=== PATIENT | male | born 1955 | race Caucasian/White ===

== ENCOUNTER → 2018-06-16 11:12 | Outpatient (CLI) | payer MEDICARE, SELFPAY ==
[2018-06-16 14:31] LABS: International Normalized Ratio 0.9; Prothrombin Time (Protime)PT. 12.5 SECONDS (11.7-14.9)
[2018-06-16 14:32] LABS: Partial Thromboplast Time 28.7 Seconds (24.1-36.2)
[2018-06-16 14:42] LABS: AST(SGOT) 20 U/L (15-37); Alanine Aminotransfer ALT/SGPT 26 U/L (16-61); Albumin, Serum 3.7 g/dL (3.2-5.0); Alkaline Phosphatase 95 U/L (45-117); Bilirubin, Direct 0.09 mg/dL (0.00-0.30); Globulin 3.7 g/dL (2.2-4.2); Protein, Total 7.4 g/dL (6.4-8.2)
[2018-06-17 09:39] LABS: AFP, Tumor Marker 1.5 ng/mL (0.0-8.3)
== END ==
PROVIDERS: Family Provider Family Medicine; PCP Family Medicine; Visit Provider Internal Medicine Gastroenterology
DX: K74.60 Unspecified cirrhosis of liver (principal)
CPT/HCPCS: 36415; 80076; 82105; 85610; 85730

== ENCOUNTER → 2018-08-26 12:37 | Outpatient (CLI) | payer MEDICARE, SELFPAY ==
[2018-08-26 14:28] LABS: Absolute Lymphocyte Count 3.05 X10^3/ul (0.83-4.51); Absolute Neutrophil Count 5.6 X10^3/uL (2.0-7.7); Basophil# 0.01 X10^3/uL; Basophil% 0.1 % (0-1); Eosinophils% 3.1 % (0-5); Hematocrit 48.9 % (40-54); Hemoglobin 16.6 g/dl (13.0-16.5); International Normalized Ratio 0.9; Lymphocyte # 3.05 X10^3/ul (4.0); Lymphocyte % 31.3 % (19-41); Mean Corp Hgb Conc 33.9 g/gl (32-36); Mean Corpuscular Volume 94.2 fL (80-94); Mean Platelet Vol. 10.6 fl (6.2-12.0); Monocyte# 0.71 X10^3/uL; Monocyte% 7.3 % (0-10); Neutrophil # 5.64 X10^3/uL (2.7-7.7); Neutrophil % 57.9 % (47-70); Platelet Count 234 K/mm3 (150-450); Prothrombin Time (Protime)PT. 12.4 SECONDS (11.7-14.9); RBC Distribution Width CV 13.7 % (11.6-14.6); RBC Distribution Width SD 46.5 fl (35.1-43.9); Red Blood Count 5.19 M/mm3 (4.6-6.2); White Blood Count 9.7 K/mm3 (4.4-11.0)
[2018-08-26 14:29] LABS: POSITIVE COUNT NO; POSITIVE DIFFERENTIAL NO; POSITIVE MORPHOLOGY NO; Partial Thromboplast Time 29.7 Seconds (24.1-36.2)
[2018-08-26 14:45] LABS: AST(SGOT) 17 U/L (15-37); Alanine Aminotransfer ALT/SGPT 22 U/L (16-61); Albumin, Serum 3.9 g/dL (3.2-5.0); Alkaline Phosphatase 99 U/L (45-117); Bilirubin, Direct 0.12 mg/dL (0.00-0.30); Globulin 4.1 g/dL (2.2-4.2)
== END ==
PROVIDERS: Family Provider Family Medicine; PCP Family Medicine; Referring Provider Internal Medicine Gastroenterology; Visit Provider Internal Medicine Gastroenterology
DX: B19.20 Unspecified viral hepatitis C without hepatic coma (principal); K74.60 Unspecified cirrhosis of liver; R19.7 Diarrhea, unspecified
CPT/HCPCS: 36415; 80076; 85025; 85610; 85730

== ENCOUNTER 2018-09-06 12:34 | Emergency (ER) | payer MEDICARE, SELFPAY ==
[2018-09-06 12:35] VITALS: BP 125/66; PULSE 92; RESP 18; TEMP 36.1; O2SAT 99; BMI 32.5
--- NOTE | 2018-09-06 13:33 | ED.VISSUMM ---
- ER Visit Summary Date of Service: 09/06/18 Chief Complaint: Jaw pain History of Present Illness: The patient is a 63 M reports a history of popping his jaw. He states yesterday he developed left jaw pain and states that his cheek will swell up whenever he tries to eat. He has no difficulty opening or closing his mouth. He is edentulous. Physical Examination: Vital signs unremarkable. Patient sitting upright in bed no acute distress. Head neck examination reveals mild tenderness of the left parotid gland. There is no intraoral tenderness or edema. Patient is edentulous. There is no gum edema or tenderness. Neck is supple with no significant lymphadenopathy. Heart is regular rate and rhythm. Lung sounds clear. Test Results: [] Emergency Department Course and Treatment: I believe the patient has parotiditis. He will be started on Pen-Vee K and instructed to eat lemon candies. He is given referral to ENT if not improving. Treatment Plan: [] Disposition: Discharge Impression: Left parotiditis This note was generated with [employer] dictation software. It may contain incorrect words, spelling, and punctuation that were not noted in review of the chart prior to signing ED Disposition - Plan for ED Patient: Disposition: Home or Assisted Living Chief Complaint: Dental Instructions: ED Sublingual Gland Obstruction Prescriptions: Penicillin V Potassium 500 mg PO 4X/DAY #40 tablet Referrals: Don Aly MD [STAFF PHYSICIAN] - 1 Week if not improving
[2018-09-06] MEDS: Penicillin Vk 250 MG Tablet 500 MG PO (13:56)
== END 2018-09-06 13:58 | disposition home or self-care (01) ==
LOC: ED 13:46
PROVIDERS: Emergency Provider Emergency Medicine; Family Provider Family Medicine; PCP Family Medicine
DX: K11.20 Sialoadenitis, unspecified (principal); Z72.0 Tobacco use; Z79.899 Other long term (current) drug therapy; Z86.19 Personal history of other infectious and parasitic diseases
CPT/HCPCS: 99283

== ENCOUNTER → 2019-01-07 10:39 | Outpatient (CLI) | payer MEDICARE, SELFPAY ==
[2019-01-09 03:07] LABS: HCV Quant. RNA PCR HCV Not Detected IU/mL (.)
[2019-01-10 11:13] LABS: AFP, Tumor Marker 1.5 ng/mL (0.0-8.3)
== END ==
PROVIDERS: Family Provider Family Medicine; PCP Family Medicine; Referring Provider Internal Medicine Gastroenterology; Visit Provider Internal Medicine Gastroenterology
DX: B19.20 Unspecified viral hepatitis C without hepatic coma (principal); K74.60 Unspecified cirrhosis of liver
CPT/HCPCS: 36415; 82105; 87522

== ENCOUNTER → 2020-06-07 10:42 | Outpatient (CLI) | payer MEDICARE, SELFPAY ==
--- NOTE | 2020-06-07 10:50 | ART_ITS ---
Reason For Study: PVD, claudication Procedure A bilateral lower extremity continuous wave Doppler with analog waveform analysis,segmental pressures,and ankle brachial indexes without exercise. Left Segmental Pressures Left brachial= 130mmHg. Left posterior tibial artery = 185mmHg. Left dorsalis pedis artery = 173mmHg. Left digit = 100 mmHg. The left dorsalis pedis waveforms are triphasic. The left posterior tibial artery waveforms are triphasic. Right Segmental Pressures Right brachial= 126mmHg. Right posterior tibial artery = 174mmHg. Right dorsalis pedis artery = 153mmHg. Right digit = 72 mmHg. The right dorsalis pedis waveforms are triphasic. The right posterior tibial artery waveforms are triphasic. Indices The right ankle brachial index by the dorsalis pedis is 1.18. The right ankle brachial index by the posterior tibial artery is 1.34. The right digital-brachial index is .55. The left ankle brachial index by the dorsalis pedis is 1.33. The left ankle brachial index by the posterior tibial artery is 1.42. The left digital-brachial index is .77. Interpretation Summary Triphasic Doppler waveforms are noted at ankle level bilaterally. Pulse-volume recordings appear satisfactory at all levels bilaterally, including low-thigh, calf, ankle, and digital levels. The resting right ankle-brachial index is normal. The resting left ankle-brachial index is supra-normal. The right digital-brachial index is mildly diminished. The left digital-brachial index is normal. There is evidence of arterial calcification at ankle level on the left. Arterial flow appears normal at ankle level bilaterally. There is evidence of mild, distal, small-vessel arterial occlusive disease at digital level on the right. Arterial flow appears normal at digital level on the left. Ordering Physician: Samara Cerda Performed By: FEDERICA ANDERSON T
== END ==
PROVIDERS: PCP Family Medicine; Referring Provider Podiatrist; Visit Provider Podiatrist
DX: I73.9 Peripheral vascular disease, unspecified (principal)
CPT/HCPCS: 93923

== ENCOUNTER 2021-03-12 09:37 | Emergency (ER) | payer MEDICARE, SELFPAY ==
[2021-03-12 09:38] VITALS: BP 130/74; PULSE 77; RESP 16; TEMP 35.8; O2SAT 98; BMI 32.3
--- NOTE | 2021-03-12 09:57 | CT_ITS ---
STUDY: CT ABDOMEN AND PELVIS WITH CONTRAST REASON FOR EXAM: Male, 65 years old. abdominal pain RADIATION DOSAGE (If Supplied By Facility): CTDIvol = ( 15.20 ) mGy, DLP = ( 1082.63 ) mGycm TECHNIQUE: Transaxial images were obtained from the dome of the diaphragm to the symphysis pubis without oral contrast. IV 100mL Isovue-370 was administered. Sagittal and coronal images were reconstructed. Individualized dose optimization techniques were used for this CT. COMPARISON: None. FINDINGS: The visualized lung bases are unremarkable. The visualized portions of the heart are within normal limits. Normal liver. Normal gallbladder and extrahepatic biliary system. Normal spleen. Normal pancreas. Normal bilateral adrenal glands. 6 mm nonobstructing stone in the upper pole the right kidney. Normal left kidney. Normal visualized stomach. Wall thickening and stranding of surrounding fat of the second portion the duodenum worrisome for duodenitis. Within this area there is a 1 cm pocket with an air-fluid level which may represent a penetrating ulcer or evidence of microperforation. Diverticulum of the superior margin the third portion duodenum. There are multiple colonic diverticula consistent with diverticulosis. The appendix is visualized and appears normal. Normal abdominal aorta. Normal inferior vena cava. Normal retroperitoneum. Normal urinary bladder. Normal abdominal wall. Status post discectomy and interbody and anterior fusion at L5/S1. CT/Abdomen/Pelvis W IV Cont ONLY IMPRESSION: Duodenitis with visualization of the ulcer or microperforation. Endoscopy may be useful. N.B. : The above information has been verbally conveyed by Harjeet Dawn MD to Sadiq Licona MD, on 03/12/2021 11:38:22 (ET). Electronically Signed: Harjeet Dawn MD at 11:40 EDT Tel , Service support ,
--- NOTE | 2021-03-12 09:58 | EKG12_ITS ---
Test Reason : CP Blood Pressure : / mmHG Vent. Rate : 077 BPM Atrial Rate : 077 BPM P-R Int : 138 ms QRS Dur : 144 ms QT Int : 396 ms P-R-T Axes : 063 018 026 degrees QTc Int : 448 ms Normal sinus rhythm Right bundle branch block Abnormal ECG Confirmed by ANDRE ABREU, JUANITA ([id number]), material expeditor YANY JIM ([id number]) on 03/14/2021 11:16:18 AM Referred By: MOISES Confirmed By:JUANITA POWELL MD
[2021-03-12 10:13] LABS: Bacteria 0 SEEN /hpf (None Seen); Mucous, Urine 0 SEEN /hpf (<or=2+); Red Blood Cells-Urine 0 SEEN /hpf (0-5); Squamous Epithelial Cells - UA 0 SEEN /hpf (0-5); White Blood Cells 0 SEEN /hpf (0-5)
[2021-03-12 10:14] LABS: Color, Urine Yellow (Yellow); Glucose, Dipstick Normal (Normal); Ketone-Dipstick Negative (Negative); Leukocyte Esterase-Dipstick Negative /ul (Negative); Nitrite-Dipstick Negative (Negative); Occult Blood-Urine Negative /ul (Negative); Protein-Dipstick Negative (Negative); Urine Bilirubin Dipstick Negative (Negative); Urine Clarity Clear (Clear); Urine Urobilinogen Normal (Normal)
[2021-03-12 10:15] LABS: Absolute Lymphocyte Count 2.21 X10^3/uL (0.83-4.51); Absolute Neutrophil Count 8.7 X10^3/uL (2.0-7.7); Basophil# 0.03 X10^3/uL; Basophil% 0.3 % (0-1); Eosinophils% 1.7 % (0-5); Hematocrit 46.7 % (40-54); Hemoglobin 15.6 g/dL (13.0-16.5); Lymphocyte # 2.21 X10^3/ul (4.0); Lymphocyte % 18.7 % (19-41); Mean Corp Hgb Conc 33.4 g/dL (32-36); Mean Corpuscular Hgb 31.8 pg (27.0-32.0); Mean Corpuscular Volume 95.3 fL (80-94); Mean Platelet Vol. 9.5 fl (6.2-12.0); Monocyte# 0.63 X10^3/uL; Monocyte% 5.3 % (0-10); NRBC Flagged by Analyzer 0 % (0-5); Neutrophil # 8.69 X10^3/uL (2.7-7.7); Neutrophil % 73.5 % (47-70); Platelet Count 287 K/mm3 (150-450); RBC Distribution Width CV 13.1 % (11.6-14.6); White Blood Count 11.8 K/mm3 (4.4-11.0)
[2021-03-12] MEDS: Morphine 4 MG/ML Syringe IV ×2 (10:16→12:27)
[2021-03-12] MEDS: 0.9% Normal Saline 1,000 ML 1000 ML IV (10:16)
[2021-03-12] MEDS: Ondansetron 4 MG/2 ML Vial IV (10:16)
[2021-03-12 10:19] VITALS: BP 124/74; PULSE 80; O2SAT 96
[2021-03-12 10:32] LABS: AST(SGOT) 12 U/L (15-37); Alanine Aminotransfer ALT/SGPT 21 U/L (16-61); Albumin, Serum 3.8 g/dL (3.2-5.0); Alkaline Phosphatase 99 U/L (45-117); Anion Gap 6 (5-15); BUN 13 mg/dL (7-18); BUN/Creat Ratio 14.3 RATIO (10-20); Calcium,Total 10.6 mg/dL (8.5-10.1); Chloride 101 mmol/L (98-107); Creatinine, Serum 0.91 mg/dL (0.70-1.30); EST Glomerular Filtration Rate 88 mL/min (>60); Est Glom Filt Rate - Afr Amer 107 mL/min (>60); Estimated Creatinine Clearance 81.33 ml/min; Glucose 106 mg/dL (74-106); Lipase 50 U/L (73-393); Potassium 3.7 mmol/L (3.5-5.1); Protein, Total 7.8 g/dL (6.4-8.2); Sodium Level 137 mmol/L (136-145)
--- NOTE | 2021-03-12 11:00 | RAD_ITS ---
STUDY: X-RAY CHEST REASON FOR EXAM: Male, 65 years old. sternal pain TECHNIQUE: Single AP portable view of the chest. COMPARISON: 07/08/2011 FINDINGS: The lungs are clear and expanded. There is no demonstrated pleural abnormality. Normal size heart. Normal mediastinum and jeanna. Normal visualized pulmonary arteries. Normal visualized aortic arch and descending thoracic aorta. Normal visualized thoracic spine. Normal visualized ribs, clavicles, and shoulders. There is no demonstrated abnormality of the visualized soft tissue structures of the upper abdomen. RAD/Chest 1 View (Portable) IMPRESSION: Normal x-ray examination of the chest. Electronically Signed: Harjeet Dawn MD at 11:23 EDT Tel , Service support ,
[2021-03-12 12:18] VITALS: BP 96/76
[2021-03-12] MEDS: Ceftriaxone 1 GM/50 ML BAG IV (12:33)
--- NOTE | 2021-03-12 12:46 | ED.DCSUM_ITS ---
- ER Visit Summary Date of Service: 03/12/21 Chief Complaint: Abdominal pain History of Present Illness: The patient is a 65 M with increasing abdominal pain over the past 3 weeks. The pain is in his upper abdomen and his right abdomen and in the suprapubic area. He noticed a small amount of blood in his stool. He has a history of smoking and marijuana use. Sober from alcohol. Physical Examination: Afebrile and vital signs unremarkable. Abdomen is soft and nontender. No guarding or rebound. Skin appears normal. Test Results: EKG shows sinus rhythm at a rate of 77 with a right bundle branch block pattern. White count 11.8. Lipase 50, AST 12, urinalysis normal, troponin normal, calcium 10.6. CT shows duodenitis with ulcer or microperforation. Chest x-ray was normal. COVID-19 test is pending. Emergency Department Course and Treatment: She was treated with fluids, pain medicine, Zofran. Work-up as above. His findings were discussed with radiology and surgery employee operations examiner. Surgery advised transfer to a tertiary care center should the patient need endoscopy or surgical care. He was treated with Rocephin and Protonix. He is stable on reevaluation. We did contact [facility] and the hospital is not excepting transfers due to capacity issues. We contacted [facility] and are awaiting a physician and room. Treatment Plan: As above Disposition: Transfer Impression: Duodenitis with microperforation This note was generated with [employer] dictation software. It may contain incorrect words, spelling, and punctuation that were not noted in review of the chart prior to signing ED Disposition - Plan for ED Patient: Referrals: Timothy Coto MD [Primary Care Provider] -
[2021-03-12 13:55] VITALS: BP 103/71; PULSE 74; RESP 18; TEMP 36.7; O2SAT 95
--- NOTE | 2021-03-12 14:25 | NURSING ---
[place] [id number] NURSE TO NURSE [phone]
--- NOTE | 2021-03-12 15:05 | ED.RN ---
SL removed- is driving pt to [facility]. Hermila ALFONSO aware of IV removed and pt coming by private vehicle.
== END 2021-03-12 15:06 | disposition short-term general hospital (02) ==
PROVIDERS: Emergency Provider Emergency Medicine; PCP Family Medicine
DX: K29.80 Duodenitis without bleeding (principal); F17.200 Nicotine dependence, unspecified, uncomplicated
CPT/HCPCS: 71045; 74177; 80053; 81001; 83690; 84484; 85025; 87426; 93005; 96361; 96365; 96367; 96375; 96376; 99285; J7030; Q9967; A4216; J2405; J3490

== ENCOUNTER 2022-02-19 10:16 | Outpatient (CLI) | payer MEDICARE, SELFPAY ==
[2022-02-19 12:41] LABS: AST(SGOT) 13 U/L (15-37); Alanine Aminotransfer ALT/SGPT 18 U/L (16-61); Albumin, Serum 3.7 g/dL (3.2-5.0); Alkaline Phosphatase 81 U/L (45-117); Bilirubin, Direct 0.15 mg/dL (0.00-0.30); CRP < 2.90 mg/L (0.0-3.0); Globulin 3.9 g/dL (2.2-4.2); Protein, Total 7.6 g/dL (6.4-8.2)
[2022-02-20 13:14] LABS: AFP, Tumor Marker 1.5 ng/mL (0.0-8.4)
== END 2022-02-19 23:59 | disposition home or self-care (01) ==
LOC: MTLAB 10:19
PROVIDERS: PCP Family Medicine; Referring Provider Internal Medicine Gastroenterology; Visit Provider Internal Medicine Gastroenterology
DX: B18.2 Chronic viral hepatitis C (principal)
CPT/HCPCS: 36415; 80076; 82105; 86140

== ENCOUNTER → 2022-05-07 | Outpatient (CLI) | payer MEDICARE, SELFPAY ==
[2022-05-07 15:43] LABS: AST(SGOT) 19 U/L (15-37); Alanine Aminotransfer ALT/SGPT 19 U/L (16-61); Albumin, Serum 3.7 g/dL (3.2-5.0); Alkaline Phosphatase 85 U/L (45-117); Bilirubin, Direct 0.11 mg/dL (0.00-0.30); Globulin 3.6 g/dL (2.2-4.2); Protein, Total 7.3 g/dL (6.4-8.2)
[2022-05-12 11:26] LABS: Endomysial Antibody IgA Negative (Negative)
[2022-05-12 19:32] LABS: Immunoglobulin A 319 mg/dL (61-437); t-Transglutaminase IgA <2 U/mL (0-3)
== END | disposition home or self-care (01) ==
LOC: MTLAB 13:41
PROVIDERS: PCP Family Medicine; Referring Provider Internal Medicine Gastroenterology; Visit Provider Internal Medicine Gastroenterology
DX: R10.9 Unspecified abdominal pain (principal)
CPT/HCPCS: 36415; 80076; 82784; 83516; 86140; 86255

== ENCOUNTER → 2022-10-01 | Outpatient (CLI) | payer MEDICARE, SELFPAY ==
--- NOTE | 2022-10-01 14:58 | NEURO_ITS ---
NCS and/or EMG Patient Report Ordering Doctor: Serge Pires DATE OF SERVICE: 10/01/22 Gordon presents for electrodiagnostic testing of the left lower limb. He reports pain in the left foot for approximately 2 years. He has intermittent numbness. Electrodiagnostic findings: Left peroneal motor nerve demonstrates normal distal latency and amplitude with reduction in conduction velocity. Left tibial motor response demonstrates normal distal latency and amplitude with reduced conduction velocity. Prolonged left tibial and peroneal F-wave. Prolonged H reflex bilaterally. Absent left sural response. Prolonged left superficial peroneal latency. Absent left medial plantar response. On needle EMG, all mus cles tested in the left lower limb as well as the left lumbar paraspinal showed no evidence of denervation with normal motor unit action potentials. Electrodiagnostic impression: This is an abnormal study in the left lower limb. 1. Electrodiagnostic findings are suggestive of peripheral neuropathy, sensory greater than motor. Would recommend evaluation of the right lower limb and potentially one upper limb to evaluate for peripheral polyneuropathy. Findings, however, do not necessarily explain the nature of the patient's pain in the left foot. 2. There is no electrodiagnostic evidence for lumbosacral radiculopathy.
== END | disposition home or self-care (01) ==
LOC: PSN 12:20
PROVIDERS: PCP Family Medicine; Referring Provider Podiatrist Foot & Ankle Surgery; Visit Provider Podiatrist Foot & Ankle Surgery
DX: G57.52 Tarsal tunnel syndrome, left lower limb (principal)
CPT/HCPCS: 95886; 95910

== ENCOUNTER 2023-09-28 14:30 | Outpatient (RCR) | payer MEDICARE, SELFPAY ==
--- NOTE | 2023-09-08 15:01 | HP.PTEVAL_ITS ---
Patient's Visit Information Visit Information Visit Information: KEN GILES III is a 68 year old M referred to Physical Therapy by Dr. Aramis Matamoros MD with a diagnosis of PRESENCE OF ARTIFICIAL KNEE JOINT ,PAIN RIGHT ,LEFT KNEE. Date of Evaluation: 09/08/23 Physical Therapist: Foreign Bangura, PT, Cert MDT, OCS Visit Plan Frequency: 2-3x /Week Duration: 4-6 Weeks Plan: PT INTERVENTIONS AROM BLE KNEE ,STRENGTHENING QUAD/HAMS/HIP ,FUNCTIONAL STRENGTHENING AND FLEXABILITY Subjective Subjective: This 68 male presents to physical therapy with bilateral knee pain . Patient has had bilateral TKR with multiple surgery and revisions. Patient seen Dr Matamoros due to pain in bilateral knees .Dr wants to Therapy to get legs stronger around knees. Patient had x-rays showed hardware wearing out. Patient has pain located medial/posterior knee pain . Aggravating worse walking/standing ,bending elevation from chair ,unable to squat/kneel. Alleviating factors oxycodone and rest. Denies paresthesia/tingling . Patient has difficulty with stairs. Patient pain affects QOL and function. Patient goals to decrease pain and improve function. SOCIAL: VOCATION: retired Pain Right Knee: Pain Intensity (Out of 10): 7 Pain Intensity Range: 10 Left Knee: Pain Intensity (Out of 10): 7 Pain Intensity Range: 10 Objective Objective: POSTURE: mild forward posture GAIT: reciprocal pattern slow tracie PALAPTION: tender medial knee pain NEURO: denies paresthesia/tingling AROM: supine knee flexion right 0-110 degrees ,left knee supine flexion 120 degrees MMT: quads/hams 4/5 ,( Peak force) hip flexion 18.9 R ,L 19,6 ,hip abduction R 17.9 , L 18. 7 STAIRS: one step at at with rails Balance/Special Test Scores Lower Extremity Functional Score: 24 Goals Goal 1:: I with HEP for Knees Goal Time Frame: 4-6 Weeks Goal 2:: Patient to demonstrate 50% improvement with decrease pain and improved function Goal Time Frame: 4-6 Weeks Goal 3:: Patient improve peak force hips by 5-10 # to improve gait and function Goal Time Frame: 4-6 Weeks Goal 4:: Patient to improve AROM supine knee flexion by 5 -10 degrees to improve stairs Goal Time Frame: 4-6 Weeks Goal 5:: Patient to improve LFES score by 5 -10 points to improve gait and function Goal Time Frame: 4-6 Weeks Rehabilitation Potential Physical Therapy Diagnosis: Patient has pain bilateral knee pain with h/o TKR with weakness and impaired walking affecting housework tasks and ADLS thus benefit from skilled PT thus will benefit from skilled PT Rehabilitation Potential: Good Anticipated Interventions Patient/Client Instruction: Educate patient on: Condition and Plan of Care For the Purpose of:: To decrease pain, To decrease swelling/inflammation, To improve muscle performance and motor function, To improve ability to perform ADL's, To increase tolerance to activity/condition/position, To improve ability of physical actions for home/community/work/leisure, To improve health of tissue, To decrease soft tissue restriction, To increase flexibility/ROM, To improve endurance and To reduce risk of recurrence Therapeutic Exercise to Include: Strength training, Endurance training, Balance training, Flexibilty training and Active ROM Comment: BLE QUADS/HAMS/HIP For the Purpose of:: To decrease pain, To increase ROM, To improve muscle performance and motor function, To increase tolerance to activity/conditi on/position, To improve performance and independence with ADL's, To improve ability of physical actions for home/community/work/leisure, To improve health of tissue, To decrease soft tissue restriction, To increase flexibility/ROM and To improve balance Text: Thank you for the opportunity to evaluate your patient. For Medicare and Medicare HMO plans, please review the plan of care and approve it. It will need to be FAXED BACK to us at [phone] for Medicare purposes. For Medicare only, by signing this I certify the plan of care. Please let me know if there are questions or concerns regarding this plan of care. Physician Signature: Date:
== END 2023-09-28 19:00 | disposition home or self-care (01) ==
LOC: PT 14:30
PROVIDERS: PCP Family Medicine; Visit Provider Specialist
DX: M25.562 Pain in left knee (principal); M25.561 Pain in right knee; Z96.653 Presence of artificial knee joint, bilateral
CPT/HCPCS: 97110; 97162

== ENCOUNTER → 2024-04-18 | Outpatient (CLI) | payer MEDICARE, SELFPAY ==
--- NOTE | 2024-04-18 15:13 | VDLE_ITS ---
Reason For Study: Left leg pain RIGHT LEFT CFV is compressible, spontaneous, phasic, GSV is normal. competent and demonstrates normal CFV is compressible, spontaneous, phasic, augmentation. competent, and demonstrates normal Procedure augmentation. This is a venous duplex using B-mode, color FV is compressible, spontaneous, phasic, flow and spectral Doppler. competent and demonstrates normal Exam performed in department. augmentation. A preliminary report was called and/or faxed POP V is compressible, spontaneous, phasic, to Dr. Matamoros. competent and demonstrates normal augmentation. T/P Trunk is compressible. PTV is compressible. LT PerV is compressible. VL/Venous Duplex US, Unilateral Interpretation Summary Deep veins of the left lower extremity are patent and compressible segmentally. There is no evidence of left lower extremity deep vein thrombosis. Valvular competence appears intac t within the proximal deep venous system on the left . The left great saphenous vein appears patent a nd compressible segmentally. The right common femoral vein is patent and compressible . Ordering Physician: Aramis Matamoros Referring Physician: MD Rosenda Omar Performed By: Kim Felipe RVT
== END | disposition home or self-care (01) ==
LOC: CVS 15:10
PROVIDERS: PCP Family Medicine; Referring Provider Specialist; Visit Provider Specialist
DX: T84.84XD Pain due to internal orthopedic prosthetic devices, implants and grafts, subsequent encounter (principal); X58.XXXD Exposure to other specified factors, subsequent encounter; R22.42 Localized swelling, mass and lump, left lower limb
CPT/HCPCS: 93971

== ENCOUNTER → 2024-06-23 | Outpatient (CLI) | payer MEDICARE, SELFPAY ==
--- NOTE | 2024-06-23 11:03 | VDLE_ITS ---
Reason For Study: RLE Swelling RIGHT LEFT GSV is normal. FV is compressible, spontaneous, phasic, CFV is compressible, spontaneous, phasic, competent and demonstrates normal competent and demonstrates normal augmentation. augmentation. FV is compressible, spontaneous, phasic, competent and demonstrates normal augmentation. POP V is compressible, spontaneous, phasic, competent and demonstrates normal augmentation. T/P Trunk is compressible. PTV is compressible. RT PerV is compressible. Procedure This is a venous duplex using B-mode, color flow and spectral Doppler. Exam performed in department. The exam was diagnostic. A preliminary report was called and/or faxed to Joy Baez / Ruy. VL/Venous Duplex US, Unilateral Interpretation Summary Deep veins of the right lower extremity are patent and compressible segmentally . There is no evidence of right lower extremity deep vein thrombosis. Valvular competence dwayne ears intact within the proximal deep venous system on the right . The right great saphenous vein a ppears patent and compressible segmentally. The left femoral vein is patent and compressible. Ordering Physician: Awais Redmond Referring Physician: MD Rosenda Omar Performed By: Ian Mariano RVT
== END | disposition home or self-care (01) ==
LOC: CVS 10:56
PROVIDERS: PCP Family Medicine; Referring Provider Physician Assistant Surgical; Visit Provider Physician Assistant Surgical
DX: R22.41 Localized swelling, mass and lump, right lower limb (principal)
CPT/HCPCS: 93971

== ENCOUNTER → 2024-08-25 | Outpatient (CLI) | payer MEDICARE, SELFPAY ==
--- NOTE | 2024-05-11 12:12 | EKG12_ITS ---
Test Reason : PRE OP Blood Pressure : / mmHG Vent. Rate : 078 BPM Atrial Rate : 078 BPM P-R Int : 138 ms QRS Dur : 142 ms QT Int : 396 ms P-R-T Axes : 047 014 033 degrees QTc Int : 451 ms Normal sinus rhythm Right bundle branch block Abnormal ECG Confirmed by LEELA ABREU, EFFIE ([id number]), editor farm journal YANY JIM ([id number]) on 05/11/2024 1:30:09 PM Referred By: Aramis Matamoros Confirmed By:EFFIE SWENSON MD
[2024-05-11 12:20] LABS: Absolute Lymphocyte Count 2.36 X10^3/uL (0.83-4.51); Absolute Neutrophil Count 5.5 X10^3/uL (2.0-7.7); Basophil# 0.03 X10^3/uL; Basophil% 0.3 % (0-1); Eosinophil# 0.21 X10^3/uL; Eosinophils% 2.4 % (0-5); Hematocrit 42.9 % (40-54); Hemoglobin 14.4 g/dL (13.0-16.5); Lymphocyte # 2.36 X10^3/ul (0.83-4.51); Mean Corp Hgb Conc 33.6 g/dL (32-36); Mean Corpuscular Hgb 31.4 pg (27.0-32.0); Mean Corpuscular Volume 93.7 fL (80-94); Mean Platelet Vol. 9.2 fl (6.2-12.0); Monocyte% 6.9 % (0-10); NRBC Flagged by Analyzer 0 % (0-5); Neutrophil % 62.9 % (47-70); Platelet Count 233 K/mm3 (150-450); RBC Distribution Width CV 13.5 % (11.6-14.6); RBC Distribution Width SD 46.1 fl (35.1-43.9); Red Blood Count 4.58 M/mm3 (4.6-6.2); White Blood Count 8.7 K/mm3 (4.4-11.0)
[2024-05-11 12:30] LABS: International Normalized Ratio 1.1; Prothrombin Time (Protime)PT. 13.7 SECONDS (11.7-14.9)
[2024-05-11 12:31] LABS: Partial Thromboplast Time 28.7 Seconds (24.1-36.2)
[2024-05-11 13:15] LABS: AST(SGOT) 19 U/L (15-37); Alanine Aminotransfer ALT/SGPT 22 U/L (16-61); Albumin, Serum 3.8 g/dL (3.2-5.0); Alkaline Phosphatase 92 U/L (45-117); Bilirubin, Direct 0.24 mg/dL (0.00-0.30); Globulin 3.4 g/dL (2.2-4.2); Magnesium 2.2 mg/dL (1.6-2.6); Protein, Total 7.2 g/dL (6.4-8.2)
[2024-05-11 13:16] LABS: Anion Gap 5 (5-15); BUN 10 mg/dL (7-18); BUN/Creat Ratio 10.3 RATIO (10-20); Calcium,Total 9.3 mg/dL (8.5-10.1); Chloride 104 mmol/L (98-107); Creatinine, Serum 0.97 mg/dL (0.70-1.30); EST Glomerular Filtration Rate 81 mL/min (>60); Est Glom Filt Rate - Afr Amer 98 mL/min (>60); Glucose 100 mg/dL (74-106); Potassium 3.7 mmol/L (3.5-5.1); Sodium Level 136 mmol/L (136-145)
== END | disposition home or self-care (01) ==
LOC: SDC 10:56
PROVIDERS: Anesthesiology; PCP Family Medicine; Referring Provider Specialist; Visit Provider Specialist
DX: Z01.818 Encounter for other preprocedural examination (principal)
CPT/HCPCS: 36415; 80048; 80076; 83735; 85025; 85610; 85730; 87077; 87081; 93005; J3475